=== PATIENT | female | born 1995 | race Caucasian/White ===

== ENCOUNTER 2018-08-26 03:37 | Emergency (ER) | payer SELFPAY ==
[2018-08-26 03:45] VITALS: BP 143/84
[2018-08-26] MEDS ORDERED: TYLENOL PO ONE (04:35)
== END 2018-08-26 08:30 | disposition left against medical advice (07) ==
LOC: ED 03:37
DX: S61.011A Laceration without foreign body of right thumb without damage to nail, initial encounter (principal); Z53.21 Procedure and treatment not carried out due to patient leaving prior to being seen by health care provider; W26.0XXA Contact with knife, initial encounter; Y93.89 Activity, other specified; Y92.89 Other specified places as the place of occurrence of the external cause; Y99.8 Other external cause status